=== PATIENT | female | born 1955 | race Two or more races ===

== ENCOUNTER 2018-02-10 08:13 | Emergency (ER) | payer OTHER ==
[~2018-02-10] VITALS: Ht 165.1 cm; Wt 89.0 kg
[2018-02-10 08:54] LABS: BASOPHIL (%) 0.5 % (0-1); EOSINOPHIL (%) 2.4 % (0-5); EOSINOPHIL COUNT 0.2 K/uL (0-0.3); HEMATOCRIT 42.5 % (36.0-46.0); HEMOGLOBIN 14.1 G/DL (11.9-15.5); IMMATURE GRANULOCYTE (%) 0.3 % (0.0-0.7); LYMPHOCYTE (%) 22.4 % (15-42); LYMPHOCYTE COUNT 1.4 K/uL (1.0-2.8); MCH 27.8 PG (29.0-34.0); MCHC 33.2 G/DL (30.0-36.0); MCV 83.7 FL (83-99); MONOCYTE (%) 7.3 % (3-12); MONOCYTE COUNT 0.5 K/uL (0-0.8); NEUTROPHIL (%) 67.1 % (45-76); NEUTROPHIL COUNT 4.1 K/uL (1.8-6.4); PLATELET COUNT 240 K/uL (156-360); RBC DIS.WIDTH-CV 12.4 % (11.8-14.6); RBC DIS.WIDTH-SD 37.6 % (39-53); RED BLOOD COUNT 5.08 M/uL (3.80-5.20); WHITE BLOOD COUNT 6.2 K/uL (4.1-10.2)
[2018-02-10 09:04] LABS: CHLORIDE 102 mEq/L (99-109); POTASSIUM 4.5 mEq/L (3.7-5.4); SODIUM 140 mEq/L (136-147)
[2018-02-10 09:06] LABS: GLUCOSE 155 mg/dL (70-99)
[2018-02-10 09:10] LABS: CREATININE 0.8 mg/dL (0.6-1.3); GFR ESTIMATE (CALCULATED) > 59 mL/min/
[2018-02-10 09:11] LABS: UREA NITROGEN (BUN) 12 mg/dL (9-23)
[2018-02-10 11:03] VITALS: BP 163/81
== END 2018-02-10 10:43 | disposition home or self-care (01) ==
LOC: EME 08:13
PROVIDERS: Emergency Medicine
DX: G43.909 Migraine, unspecified, not intractable, without status migrainosus (principal); R11.2 Nausea with vomiting, unspecified; Z87.19 Personal history of other diseases of the digestive system; Z88.8 Allergy status to other drugs, medicaments and biological substances
CPT/HCPCS: 70450; 80048; 85025; 99281; 99285; J1885; J2765; J7030